=== PATIENT | female | born 1995 | race Caucasian/White ===

== ENCOUNTER 2024-10-02 00:02 | Inpatient (IN) | payer SELFPAY ==
[2024-10-02] VITALS (7 sets, daily range): BP systolic 116–168; BP diastolic 64–118; PULSE 78–91; RESP 16–18; TEMP 36.7–37.1; O2SAT 97–98; BMI 42.9
--- NOTE | 2024-10-02 00:27 | ED.C_ITS ---
Documented by User: HANS Eugene 10/02/24 00:35 HPI - Psych 2 General: Chief Complaint: Psychiatric Symptoms Stated Complaint: SI Time Seen by Provider: 10/02/24 00:12 Source: patient Mode of arrival: EMS Limitations: no limitations History of Present Illness: Patient is a 28-year-old female with past medical history of PTSD, hypothyroid, and type 2 diabetes who presents the emergency department due to suicidal ideations for the last 2 months. She states that she has been homeless for the past couple of months, she was kicked out of the house where she was living with her ex significant other that she was sharing with their 2 kids. States that she has been living wherever I can find a couch and that today she was standing on top of a bridge near couple rate to jump off and end her life. She states slip presser were apparently called and they got her off before she could jump. She states that she has had other thoughts of killing herself by jumping in front of a train. Also has history of self-harm cutting her arms and legs. States that she used to be on Prozac, but did not refill this a while back. Also is supposed to be on medication for thyroid and diabetes but again does not take these medications. Patient reports that she is not having any homicidal ideations, or hallucinations of any kind. She does note using methamphetamines today, also states that she drinks alcohol when she can but this has been difficult due to being homeless. She has no other symptoms to report at this time. MD complaint: suicidal ideation Onset (ago): month(s) Duration: constant History of same: Yes Relieving factors: none Context: recent drug abuse, not taking psychiatric medications and significant life stressor Associated symptoms: Reports suicidal ideation; Deny auditory hallucinations, visual hallucinations or homicidal ideation Treatments prior to arrival: none If self harm: admits thoughts of self harm, has plan, has acted on plan and self-inflicted trauma Related Data Allergies Allergy/AdvReac Type Severity Reaction Status Date / Time No Known Drug Allergies Allergy Unknown Verified 10/02/24 00:09 Review of Systems 2 General: Reports: 10 or more systems reviewed and unremarkable except in HPI and below Const: Denies: fever(s), chills or fatigue Eyes: Denies: change in vision ENMT: Denies: throat pain, ear or mastoid pain or nasal discharge Card: Denies: chest pain, palpitations, swelling of feet/ankles or lightheadedness Resp: Denies: dyspnea, productive cough or wheezing GI: Denies: abdominal pain, nausea, vomiting, diarrhea or constipation : Denies: flank pain, difficulty voiding, dysuria or urinary frequency Musc: Denies: neck pain, back pain or joint pain Skin/Breast: Denies: rash Neuro: Denies: headache(s), numbness in extremities or weakness in extremities Psych: Reports: suicidal ideation; Denies: visual hallucinations, auditory hallucinations, tactile hallucinations or homicidal ideation Physical Exam 2 Const: COMMON NORMALS: no acute distress, patient oriented x3 and no limitations GENERAL APPEARANCE: cooperative and well developed O RIENTATION/CONSCIOUSNESS: Yes awake, Yes oriented to person, Yes oriented to place and Yes oriented to time HENMT: COMMON NORMALS: normocephalic, atraumatic and hearing grossly normal bilaterally HEAD & SCALP: normocephalic and atraumatic Eye: COMMON NORMALS: Equal, round and reactive pupils present, EOMs intact bilaterally and conjunctivae normal CONJUNCTIVA: Yes conjunctivae normal P UPIL: Yes Equal, round and reactive pupils present Neck/C-Spine: COMMON NORMALS: full ROM, supple and no JVD Resp: COMMON NORMALS: normal respiratory effort, No retractions, No use of accessory muscles and clear to auscultation bilaterally AUSCULTATION: clear to auscultation bilaterally Cardio: COMMON NORMALS: no JVD, regular rate, regular rhythm, No clicks present (Cardio), No murmurs present (Cardio) and No rub (Cardio) RATE: r egular rate RHYTHM: regular rhythm Extremity: COMMON NORMALS: normal to inspection, full ROM and capillary refill normal Neuro: COMMON NORMALS: patient oriented x3, moves all extremities, no focal motor deficits and no sensory deficits noted SENSORIUM/ORIENTATION: Yes oriented to person, Yes oriented to place and Yes oriented to time Psych: COMMON NORMALS: mental status grossly normal and Normal thought process present APPEARANCE: Yes unkempt ACTIVITY/MOTOR BEHAVIOR: Yes Avoids eye contact (attititude/behavior) SPEECH: Yes soft MOOD & AFFECT: Yes depressed mood THOUGHT PROCESS: Normal thought process present THOUGHT CONTENT: Yes Suicidality present, No Homicidality present and No Hallucination(s) present Skin: COMMON NORMALS: no rashes or lesions noted GENERAL SKIN EXAM: no rashes or lesions noted Course 2 Vital Signs: Vital signs: Vital Signs Temperature 98.1 F 10/02/24 00:02 Pulse Rate 88 10/02/24 00:02 Respiratory Rate 16 10/02/24 00:02 Blood Pressure 168/118 10/02/24 00:02 Pulse Oximetry 98 10/02/24 00:02 Oxygen Delivery Me thod Room Air 10/02/24 00:02 MDM - Psych Lab Data 10/02/24 01:22 10/02/24 01:22 Laboratory Results WBC 13.86 10^3/uL (3.29-11.43) H 10/02/24 01:22 RBC 4.93 10^6/uL (3.85-5.65) 10/02/24 01:22 Hgb 14.90 g/dL (11.27-16.99) 10/02/24 01:22 Hct 45.0 % (36-47) 10/02/24 01:22 MCV 91.3 fl (85-98) 10/02/24 01:22 MCH 30.2 pg (27-33) 10/02/24 01:22 MCHC 33.1 g/dL (30-55) 10/02/24 01:22 RDW 13.2 % (12.1-15.1) 10/02/24 01:22 Plt Count 273 10^3/cmm (157-399) 10/02/24 01:22 MPV 8.5 fL (7.4-10.4) 10/02/24 01:22 Neut % (Auto) 68.0 % 10/02/24 01:22 Lymph % (Auto) 24.5 % 10/02/24 01:22 [place] % (Auto) 6.3 % 10/02/24 01:22 Eos % (Auto) 0.4 % 10/02/24 01:22 Baso % (Auto) 0.4 % 10/02/24 01:22 Neut # (Auto) 9.44 10^3/uL (1.8-7.7) H 10/02/24 01:22 Lymph # (Auto) 3.4 10^3/uL (0.8-4.8) 10/02/24 01:22 [place] # (Auto) 0.9 10^3/uL (0.2-0.9) 10/02/24 01:22 Eos # (Auto) 0.1 10^3/uL (0.0-0.8) 10/02/24 01:22 Baso # (Auto) 0.1 10^3/uL (0.0-0.1) 10/02/24 01:22 Nucleated RBC % (auto) 0 % 10/02/24 01:22 Nucleated RBCs # 0.0 /100WBC 10/02/24 01:22 Sodium 140 mmol/L (136-145) 10/02/24 01:22 Potassium 3.9 mmol/L (3.5-5.1) 10/02/24 01:22 Chloride 102 mmol/L (98-107) 10/02/24 01:22 Carbon Dioxide 27 mmol/L (22-29) 10/02/24 01:22 Anion Gap 14.9 (5-19) 10/02/24 01:22 BUN 14 mg/dL (6-20) 10/02/24 01:22 Creatinine 0.9 mg/dL (0.5-0.9) 10/02/24 01:22 GFR Calculation 73.5 mL/min (90-130) L 10/02/24 01:22 Glucose 179 mg/dL (65-115) H 10/02/24 01:22 Calculated Osmolality 295 mOsm/kg (285-295) 10/02/24 01:22 Calcium 9.4 mg/dL (8.5-10.5) 10/02/24 01:22 Total Bilirubin 0.2 mg/dL (0.15-1.2) 10/02/24 01:22 AST 16 U/L (0-32) 10/02/24 01:22 ALT 20 U/L (0-33) 10/02/24 01:22 Alkaline Phosphatase 95 U/L (35-105) 10/02/24 01:22 Total Protein 7.1 g/dL (6.6-8.7) 10/02/24 01:22 Albumin 4.1 g/dL (3.5-5.2) 10/02/24 01:22 Globulin 3.0 g/dL (1.3-4.6) 10/02/24 01:22 TSH 5.95 uIU/mL (0.27-4.20) H 10/02/24 01:22 Salicylates < 0.3 mg/dL (3-10) L 10/02/24 01:22 Acetaminophen < 5.0 ug/mL (10-30) L 10/02/24 01:22 Ethyl Alcohol < 10 mg/dL (0-10) 10/02/24 01:22 Discharge Plan Discharge Patient Disposition: Admitted As Inpatient Clinical Impression: Suicidal ideation Condition: Stable Coding Level of Care Code ED Dental Services Director for Chg Fwd Documented by User: Cooper Box DO 10/02/24 03:17 HPI - Psych 2 General: Chief Complaint: Psychiatric Symptoms Stated Complaint: SI Time Seen by Provider: 10/02/24 00:12 Related Data Allergies Allergy/AdvReac Type Severity Reaction Status Date / Time No Known Drug Allergies Allergy Unknown Verified 10/02/24 00:09 Course 2 Vital Signs: Vital signs: Vital Signs Temperature 98.1 F 10/02/24 00:02 Pulse Rate 88 10/02/24 00:02 Respiratory Rate 16 10/02/24 00:02 Blood Pressure 168/118 10/02/24 00:02 Pulse Oximetry 98 10/02/24 00:02 [facility] 10[facility]02/24 00:02 MDM - Psych Medical Decision Making Patient care transferred over to id at shift change, reviewed lab work, discussed the case with Dr. Martinez we will place patient in MPU for further evaluation and treatment. Lab Data 10/02/24 01:22 10/02/24 01:22 Laboratory Results WBC 13.86 10^3/uL (3.29-11.43) H 10/02/24 01:22 RBC 4.93 10^6/uL (3.85-5.65) 10/02/24 01:22 Hgb 14.90 g/dL (11.27-16.99) 10/02/24 01:22 Hct 45.0 % (36-47) 10/02/24 01:22 MCV 91.3 fl (85-98) 10/02/24 01:22 MCH 30.2 pg (27-33) 10/02/24 01:22 MCHC 33.1 g/dL (30-55) 10/02/24 01:22 RDW 13.2 % (12.1-15.1) 10/02/24 01:22 Plt Count 273 10^3/cmm (157-399) 10/02/24 01:22 MPV 8.5 fL (7.4-10.4) 10/02/24 01:22 Neut % (Auto) 68.0 % 10/02/24 01:22 Lymph % (Auto) 24.5 % 10/02/24 01:22 [place] % (Auto) 6.3 % 10/02/24 01:22 Eos % (Auto) 0.4 % 10/02/24 01:22 Baso % (Auto) 0.4 % 10/02/24 01:22 Neut # (Auto) 9.44 10^3/uL (1.8-7.7) H 10/02/24 01:22 Lymph # (Auto) 3.4 10^3/uL (0.8-4.8) 10/02/24 01:22 [place] # (Auto) 0.9 10^3/uL (0.2-0.9) 10/02/24 01:22 Eos # (Auto) 0.1 10^3/uL (0.0-0.8) 10/02/24 01:22 Baso # (Auto) 0.1 10^3/uL (0.0-0.1) 10/02/24 01:22 Nucleated RBC % (auto) 0 % 10/02/24 01:22 Nucleated RBCs # 0.0 /100WBC 10/02/24 01:22 Sodium 140 mmol/L (136-145) 10/02/24 01:22 Potassium 3.9 mmol/L (3.5-5.1) 10/02/24 01:22 Chloride 102 mmol/L (98-107) 10/02/24 01:22 Carbon Dioxide 27 mmol/L (22-29) 10/02/24 01:22 Anion Gap 14.9 (5-19) 10/02/24 01:22 BUN 14 mg/dL (6-20) 10/02/24 01:22 Creatinine 0.9 mg/dL (0.5-0.9) 10/02/24 01:22 GFR Calculation 73.5 mL/min (90-130) L 10/02/24 01:22 Glucose 179 mg/dL (65-115) H 10/02/24 01:22 Calculated Osmolality 295 mOsm/kg (285-295) 10/02/24 01:22 Calcium 9.4 mg/dL (8.5-10.5) 10/02/24 01:22 Total Bilirubin 0.2 mg/dL (0.15-1.2) 10/02/24 01:22 AST 16 U/L (0-32) 10/02/24 01:22 ALT 20 U/L (0-33) 10/02/24 01:22 Alkaline Phosphatase 95 U/L (35-105) 10/02/24 01:22 Total Protein 7.1 g/dL (6.6-8.7) 10/02/24 01:22 Albumin 4.1 g/dL (3.5-5.2) 10/02/24 01:22 Globulin 3.0 g/dL (1.3-4.6) 10/02/24 01:22 TSH 5.95 uIU/mL (0.27-4.20) H 10/02/24 01:22 Salicylates < 0.3 mg/dL (3-10) L 10/02/24 01:22 Acetaminophen < 5.0 ug/mL (10-30) L 10/02/24 01:22 Ethyl Alcohol < 10 mg/dL (0-10) 10/02/24 01:22 No radiology studies performed this visit Discharge Plan Discharge Patient Disposition: Admitted As Inpatient Clinical Impression: Suicidal ideation Condition: Stable Coding Level of Care Code ED Dental Services Director for [facility]
[2024-10-02 01:57] LABS: Basophils # 0.1 10^3/uL (0.0-0.1); Basophils % 0.4 %; Eosinophils # 0.1 10^3/uL (0.0-0.8); Eosinophils % 0.4 %; Lymphocytes # 3.4 10^3/uL (0.8-4.8); Lymphocytes % 24.5 %; Mean Corpuscular HGB Conc 33.1 g/dL (30-55); Mean Corpuscular Hemoglobin 30.2 pg (27-33); Mean Corpuscular Volume 91.3 fl (85-98); Mean Platelet Volume 8.5 fL (7.4-10.4); Monocytes # 0.9 10^3/uL (0.2-0.9); Monocytes % 6.3 %; Neutrophils # 9.44 10^3/uL (1.8-7.7); Nucleated Red Blood Cells % 0 %; Platelet Count 273 10^3/cmm (157-399); Red Blood Count 4.93 10^6/uL (3.85-5.65); Red Cell Distribution Width 13.2 % (12.1-15.1); White Blood Count 13.86 10^3/uL (3.29-11.43)
[2024-10-02 02:26] LABS: Acetaminophen < 5.0 ug/mL (10-30); Alanine Aminotransferase 20 U/L (0-33); Albumin Level 4.1 g/dL (3.5-5.2); Alcohol Level < 10 mg/dL (0-10); Alkaline Phosphatase 95 U/L (35-105); Anion Gap 14.9 (5-19); Aspartate Amino Transferase 16 U/L (0-32); Blood Urea Nitrogen 14 mg/dL (6-20); Calcium 9.4 mg/dL (8.5-10.5); Carbon Dioxide 27 mmol/L (22-29); Chloride 102 mmol/L (98-107); Creatinine Clr Calc Pharmacy 112.8049; Glomerular Filtration Rate 73.5 mL/min (90-130); Glucose 179 mg/dL (65-115); Osmolality Calculated 295 mOsm/kg (285-295); Potassium 3.9 mmol/L (3.5-5.1); Salicylate < 0.3 mg/dL (3-10); Sodium 140 mmol/L (136-145); Thyroid Stimulating Hormone 5.95 uIU/mL (0.27-4.20); Total Bilirubin 0.2 mg/dL (0.15-1.2); Total Protein 7.1 g/dL (6.6-8.7)
--- NOTE | 2024-10-02 03:58 | PC.NURSE ---
96 Hour Involuntary Hold Patient Rights have been reviewed with the patient and a copy of the same has been given to her. Tax Collection Coordinator Marline was present at bedside at the time of presentation of Rights.
--- NOTE | 2024-10-02 11:13 | PC.NURSE ---
this nurse assumed pt care at 1110 from JEN Giraldo.
[2024-10-02 15:48] LABS: Amphetamines Screen Urine Positive (Negative); Barbiturates Screen Urine Negative (Negative); Benzodiazepines Screen Urine Negative (Negative); Cocaine Screen Urine Negative (Negative); Opiate Screen Urine Negative (Negative); PCP Screen Urine Negative (Negative); THC Screen Urine Negative (Negative)
[2024-10-02] MEDS: nicotine 4 mg lozenge MUCOUS MEM (20:40)
[2024-10-03 05:53] VITALS: BMI 42.9
[2024-10-03 06:00] VITALS: BP 134/82; PULSE 85; RESP 18; TEMP 36.8; O2SAT 100
[2024-10-03] MEDS: nicotine 4 mg lozenge MUCOUS MEM ×3 (11:02→16:16)
[2024-10-03] MEDS: phenol oral Spray 177 mL 5 SPRAY MUCOUS MEM (12:30)
[2024-10-03 14:00] VITALS: BP 128/83; PULSE 92; RESP 17; TEMP 36.8; O2SAT 98
[2024-10-03] MEDS: cetylpyridinium Lozenge 1 EACH MUCOUS MEM ×2 (14:39→20:49)
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
--- NOTE | 2024-10-03 18:39 | PC.NURSE ---
Per Dr. Gallagher, one POC glucose ordered for Friday morning prior to food. Also, thyroid panel ordered.
[2024-10-03 19:29] LABS: Thyroid Stimulating Hormone 4.78 uIU/mL (0.27-4.20)
[2024-10-03 20:14] VITALS: BP 129/75; PULSE 80; RESP 16; TEMP 36.9; O2SAT 97
[2024-10-04 06:00] VITALS: BP 110/72; PULSE 90; RESP 18; TEMP 36.8; O2SAT 97
[2024-10-04 07:37] LABS: Glucose Point of Care 115 mg/dL (70-110)
--- NOTE | 2024-10-04 08:24 | PC.NURSE ---
IN BED RESTING, EVASIVE WITH ASSESSMENT. RATES ANXIETY 0/10, IF I GET TO LEAVE TODAY I WILL BE FINE IF NOT THEN WELL. PT STATES THE SAID I 'M LEAVING TODAY AFTER I TALK TO THE CASE WORKERS. PT WAS EDUCATED SHE WAS ON A 96 HOUR HOLD AND THIS RN IS NOT AWARE OF ANY DISCHARGED TODAY. PT THEN ROLLED OVER AND ONLY ANSWERED QUESTIONS USING YES OR NO. RATES DEPRESSION 0/10.. DENIES PAIN. DENIES SI/HI AND AVH AT THIS TIME. SUPPORT VOICED. VISTARIL 50 MG GIVEN FOR INCREASED ANXIETY DUE TO NOT KNOWING IF SHES LEAVING TODAY.
[2024-10-04] MEDS: nicotine 4 mg lozenge MUCOUS MEM ×2 (08:25→12:23)
[2024-10-04] MEDS: fluoxetine 20 mg Capsule PO (08:25)
[2024-10-04] MEDS: hyDROXYzine 25 mg Capsule 50 MG PO (08:25)
[2024-10-04] MEDS: cetylpyridinium Lozenge 1 EACH MUCOUS MEM (08:25)
[2024-10-04 12:15] LABS: Glucose Point of Care 154 mg/dL (70-110)
--- NOTE | 2024-10-04 12:28 | PC.NURSE ---
ATTEMPTED TO CONTACT [facility] [place] TO CONFIRM SYNTHROID AND METFORMIN DOSE PER DR. WOO TO POSSIBLY RESTART. CALLED [phone] WITH NO ANSWER, MESSAGE LEFT TO CALL ME BACK TO CONFIRM MEDICATIONS. PT THEN CAME TO THE NURSES STATION AND STATES SHE IS LEAVING TODAY AND SHE IS STAYING ON [facility]S COUCH. INFORMED PT THAT CASE MANAGEMENT WOULD HAVE TO CONFIRM SHE HAD A PLACE TO STAY AND THEN THEY WOULD NOTIFY DR. WOO ON WHERE SHE WILL BE STAYING. AWAITING DETAILS ON POSSIBLE DISCHARGE.
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
[2024-10-04 15:13] VITALS: BP 110/72; PULSE 90; RESP 18; TEMP 36.8; O2SAT 97
== END 2024-10-04 16:04 | disposition home or self-care (01) | DRG 881 ==
LOC: ER 03:14 → ER IP 03:46 → NP 18:34
PROVIDERS: Admitting Provider Psychiatry & Neurology Psychiatry; Emergency Provider Physician Assistant; PCP Nurse Practitioner Family; Visit Provider Psychiatry & Neurology Psychiatry
DX: F32.A Depression, unspecified (principal); R45.851 Suicidal ideations; Z68.41 Body mass index [BMI] 40.0-44.9, adult; Z59.00 Homelessness unspecified; F43.10 Post-traumatic stress disorder, unspecified; Z91.52 Personal history of nonsuicidal self-harm; Z91.148 Patient's other noncompliance with medication regimen for other reason; E03.9 Hypothyroidism, unspecified; E11.9 Type 2 diabetes mellitus without complications; F15.10 Other stimulant abuse, uncomplicated; F10.90 Alcohol use, unspecified, uncomplicated; Z81.8 Family history of other mental and behavioral disorders; E66.9 Obesity, unspecified
CPT/HCPCS: 36415; 36416; 80053; 80306; 80307; 82962; 84439; 84443; 85025; 97165; 99285